=== PATIENT | female | born 1985 | race Caucasian/White ===

== ENCOUNTER 2024-06-15 16:15 | Emergency (ER) | payer OTHER ==
[~2024-06-15] VITALS: Ht 165.1 cm; Wt 84.7 kg
[2024-06-15 16:20] VITALS: O2SAT 99
[2024-06-15] MEDS: METOCLOPRAMIDE HCL 10MG/2ML VIAL IV ONE (17:17)
[2024-06-15] MEDS ORDERED: DIPHENHYDRAMINE 50MG/ML VIAL IV ONE (17:45)
[2024-06-15] MEDS ORDERED: KETOROLAC 30MG/ML VIAL IV ONE (17:45)
[2024-06-15] MEDS ORDERED: IBUP-2029 MT (17:51)
[2024-06-15 17:55] VITALS: BP 108/66; PULSE 81; RESP 11; TEMP 37.05852; O2SAT 98
[2024-06-15 17:57] LABS: BASOPHILS % 0.7 % (0.0-2.0); EOSINOPHILS % 2.2 % (0.0-5.0); HEMATOCRIT. 37.7 % (36.0-48.0); HEMOGLOBIN. 12.9 g/dL (12.0-16.0); LYMPHOCYTES % 23.9 % (20.0-50.0); MEAN CORPUSCULAR HEMOGLOBIN 29.6 pg (28.0-32.0); MEAN CORPUSCULAR HGB CONC 34.1 g/dL (31.0-37.0); MEAN CORPUSCULAR VOLUME 86.8 fL (81.0-99.0); MEAN PLATELET VOLUME 7.3 fl (7.4-10.4); MONOCYTES % 4.2 % (2.0-8.0); PLATELET 388 x1000/uL (130-400); RED BLOOD CELL COUNT 4.34 mill/uL (4.2-5.4); RED CELL DISTRIBUTION WIDTH 14.2 % (11.6-14.6); WHITE BLOOD COUNT 10.7 x1000/uL (4.5-11.0)
[2024-06-15 18:03] LABS: CARBON DIOXIDE 22 mEq/L (21-32); CHLORIDE 104 mEq/L (98-107); POTASSIUM 3.5 mEq/L (3.5-5.1); SODIUM 136 mEq/L (136-145)
[2024-06-15 18:04] LABS: CALCIUM 9.5 mg/dL (8.7-10.4)
[2024-06-15 18:06] LABS: INR 0.9; PROTHROMBIN TIME 10.6 sec (9.6-11.0)
[2024-06-15 18:09] LABS: CREATININE 0.7 mg/dL (0.6-1.0); GLUCOSE 95 mg/dL (70-105); UREA NITROGEN BLOOD 9 mg/dL (9-23)
[2024-06-15 18:12] LABS: ETHANOL BLOOD < 10 mg/dL (<10); TROPONIN I HIGH SENSITIVITY < 4 ng/L (3.0-34)
[2024-06-15 18:47] LABS: HCG SCREEN NEGATIVE
[2024-06-15] MEDS ORDERED: IOHEXOL-350 100 ML BOTTLE ONE (23:57)
== END 2024-06-15 18:20 | disposition home or self-care (01) ==
LOC: ER 16:15
DX: R51.9 Headache, unspecified (principal); R20.2 Paresthesia of skin; R53.1 Weakness; E03.9 Hypothyroidism, unspecified
CPT/HCPCS: 36415; 70496; 70498; 71045; 80048; 80320; 82962; 84484; 84703; 85025; 93005; 96374; 99285; J2765; Q9967; G0480